=== PATIENT | male | born 1995 | race Caucasian/White ===

== ENCOUNTER 2019-04-23 22:08 | Emergency (ER) | payer OTHER, MEDICAID ==
[~2019-04-23] VITALS: Ht 180.3 cm; Wt 64.5 kg
[2019-04-23 22:17] VITALS: BP 116/77
== END 2019-04-24 01:48 | disposition home or self-care (01) ==
LOC: ER 22:10
DX: S13.8XXA Sprain of joints and ligaments of other parts of neck, initial encounter (principal); V49.88XA Car occupant (driver) (passenger) injured in other specified transport accidents, initial encounter; Y93.89 Activity, other specified; Y92.413 State road as the place of occurrence of the external cause; Y99.9 Unspecified external cause status
CPT/HCPCS: 72040; 99283